=== PATIENT | female | born 1995 | race Caucasian/White ===

== ENCOUNTER 2023-02-23 17:59 | Emergency (ER) | payer SELFPAY | END 2023-02-23 20:45 | disposition home or self-care (01) | LOC: CSHERS 17:59 | DX: O99.891 Other specified diseases and conditions complicating pregnancy (principal); R10.32 Left lower quadrant pain; R11.0 Nausea; O99.331 Smoking (tobacco) complicating pregnancy, first trimester; F17.290 Nicotine dependence, other tobacco product, uncomplicated; Z3A.01 Less than 8 weeks gestation of pregnancy | CPT/HCPCS: 76856 ==

== ENCOUNTER 2023-03-19 18:06 | Inpatient (IN) | payer MEDICAID, OTHER ==
[2023-03-19] MEDS ORDERED: Ondansetron PF 4 MG/2 ML Vial IVP PRN (18:59)
[2023-03-19] MEDS ORDERED: hydrALAZINE 20 MG/ML VIAL SLOW IVP PRN (18:59)
[2023-03-19] MEDS ORDERED: Docusate 100 MG CAP PO PRN (18:59)
[2023-03-19] MEDS ORDERED: Acetaminophen 500 MG TAB PO PRN (18:59)
[2023-03-19] MEDS ORDERED: Promethazine HCl 25 MG/ML VIAL IM PRN (18:59)
[2023-03-19] MEDS: Lactated Ringer's 1,000 ML IV SCH (19:54)
[2023-03-19] MEDS ORDERED: Multivitamins, Adult 10 ML, Folic Acid 1 MG, Thiamine HCl 100 MG in Dextrose 5 %-0.45 %... IV SCH (20:00)
[2023-03-19] MEDS: Potassium Chloride 20 MEQ in Premix 1 BAG IVPB SCH ×2 (20:01→22:17)
[2023-03-19] MEDS: Metoclopramide HCl 10 MG/2 ML VIAL IVP SCH (21:24)
[2023-03-19 22:29] LABS: Hemoglobin A1c 5.1 % (4.0-6.0)
[2023-03-19] MEDS: Zolpidem Tartrate 5 MG TAB PO PRN (23:37)
[2023-03-20] MEDS ORDERED: Lactated Ringer's 1,000 ML IV SCH (02:00)
[2023-03-20 04:35] LABS: #Neutrophils 9.6 10x3/uL (1.5-8.4); %Basophils 0.1 % (0.0-2.0); %Eosinophils 0.3 % (0.0-6.0); %Lymphocytes 20.5 % (18.0-47.0); %Monocytes 7.4 % (0.0-10.0); Hemoglobin 11.4 g/dL (12.0-15.5); Mean Corpuscular HGB CONC 35.6 g/dL (32.0-36.0); Mean Corpuscular Hemoglobin 30.1 pg (27.0-33.0); Mean Corpuscular Volume 84.4 fl (81.6-98.3); Mean Platelet Volume 11.2 fl (7.4-10.4); Platelet Count 242 10x3/uL (150-450); RBC Distribution Width 11.9 % (11.5-14.5); Red Blood Cell (RBC) Count 3.79 10x6/uL (3.90-5.03); White Blood Cell (WBC) Count 13.6 10x3/uL (3.5-10.5)
[2023-03-20] MEDS: Metoclopramide HCl 10 MG/2 ML VIAL IVP SCH ×3 (05:18→21:56)
[2023-03-20] MEDS: Lactated Ringer's 1,000 ML IV SCH ×3 (05:21→17:12)
[2023-03-20 05:42] LABS: Bilirubin Neg (Negative); Blood, Urine Negative (Negative); Clarity Clear (Clear); Glucose, Urine (Dipstick) Normal (Negative); Ketone, Urine Negative (Negative); Leukocyte Negative (Negative); Nitrite Negative (Negative); Protein, Urine (Dipstick) 30 mg/dl (Neg-Trace)
[2023-03-20 05:48] LABS: ALT (SGPT) 105 U/L (8-55); AST (SGOT) 80 U/L (5-34); Albumin 3.5 g/dL (3.5-5.0); Alkaline Phosphatase 41 U/L (40-110); Anion Gap 13 mmol/L (10-20); BUN (Urea Nitrogen) 25 mg/dL (7.0-18.7); Calc. Creatinine Clearance 119 mL/min (70-130); Calcium 8.7 mg/dL (7.8-10.44); Carbon Dioxide 27 mmol/L (22-29); Chloride 95 mmol/L (98-107); Estimated GFR 119; Globulin 2.7 g/dL (2.4-3.5); Glucose 99 mg/dL (70-105); Potassium 2.7 mmol/L (3.5-5.1); Protein, Total 6.2 g/dL (6.0-8.3); Sodium 132 mmol/L (136-145)
[2023-03-20 05:54] LABS: Bacteria/HPF None Seen HPF (None Seen); CAUTI Indications for Culture Pregnancy; RBC/HPF None Seen HPF (0-3); Squamous Epithelial 0-3 HPF (0-3); WBC/HPF 0-3 HPF (0-3)
[2023-03-20] MEDS ORDERED: Lidocaine 2% Viscous Solution 10 ML, Aluminum & Magnesium Hydroxide 30 ML SSW SCH ×2 (06:00→18:00)
[2023-03-20] MEDS ORDERED: Potassium Chloride 20 MEQ TAB PO SCH (08:00)
[2023-03-20] MEDS: Potassium Chloride 20 MEQ in Premix 1 BAG IVPB SCH ×4 (10:35→21:56)
[2023-03-20 13:45] LABS: Thyroid Peroxidase IgG Ab 5.3 IU/mL (<25 Normal)
[2023-03-20 14:37] LABS: ALT (SGPT) 105 U/L (8-55); AST (SGOT) 69 U/L (5-34); Albumin 3.7 g/dL (3.5-5.0); Alkaline Phosphatase 45 U/L (40-110); Anion Gap 13 mmol/L (10-20); BUN (Urea Nitrogen) 21 mg/dL (7.0-18.7); Bilirubin, Total 1.1 mg/dL (0.2-1.2); Calc. Creatinine Clearance 119 mL/min (70-130); Calcium 9.1 mg/dL (7.8-10.44); Carbon Dioxide 28 mmol/L (22-29); Chloride 98 mmol/L (98-107); Estimated GFR 119; Globulin 2.8 g/dL (2.4-3.5); Glucose 89 mg/dL (70-105); Magnesium 2.4 mg/dL (1.6-2.6); Potassium 2.7 mmol/L (3.5-5.1); Protein, Total 6.5 g/dL (6.0-8.3); Sodium 136 mmol/L (136-145)
[2023-03-21] MEDS: Potassium Chloride 20 MEQ in Premix 1 BAG IVPB SCH ×3 (00:03→04:25)
[2023-03-21] MEDS: Zolpidem Tartrate 5 MG TAB PO PRN (00:14)
[2023-03-21] MEDS: Lactated Ringer's 1,000 ML IV SCH ×2 (04:25→10:41)
[2023-03-21] MEDS: Metoclopramide HCl 10 MG/2 ML VIAL IVP SCH (06:33)
[2023-03-21 07:51] VITALS: TEMP 98.5
[2023-03-21] MEDS ORDERED: Lidocaine 2% Viscous Solution 10 ML, Aluminum & Magnesium Hydroxide 30 ML SSW SCH (08:00)
[2023-03-21] MEDS ORDERED: Famotidine/PF 20 mg/2ml Vial SLOW IVP SCH (09:00)
[2023-03-21 11:00] LABS: ALT (SGPT) 95 U/L (8-55); AST (SGOT) 52 U/L (5-34); Albumin 3.5 g/dL (3.5-5.0); Alkaline Phosphatase 40 U/L (40-110); Anion Gap 10 mmol/L (10-20); BUN (Urea Nitrogen) 16 mg/dL (7.0-18.7); Bilirubin, Total 0.6 mg/dL (0.2-1.2); Calc. Creatinine Clearance 137 mL/min (70-130); Calcium 8.6 mg/dL (7.8-10.44); Carbon Dioxide 23 mmol/L (22-29); Chloride 106 mmol/L (98-107); Estimated GFR 125; Globulin 2.5 g/dL (2.4-3.5); Glucose 86 mg/dL (70-105); Potassium 3.9 mmol/L (3.5-5.1); Sodium 135 mmol/L (136-145)
[2023-03-21 12:03] VITALS: BP 117/65
== END 2023-03-21 14:58 | disposition home or self-care (01) | DRG 832 ==
LOC: CSHPP 18:06 → INTOOBSV 18:06 → OBSVTOIN 03-21 11:32
PROVIDERS: ADMIT Obstetrics & Gynecology; ATTEND Obstetrics & Gynecology
DX: O21.1 Hyperemesis gravidarum with metabolic disturbance (principal); O12.11 Gestational proteinuria, first trimester; O99.321 Drug use complicating pregnancy, first trimester; Z3A.09 9 weeks gestation of pregnancy
CPT/HCPCS: 36415; 76801; 80053; 81001; 83036; 83735; 84443; 84702; 85025; 86376; 86800; J2765; J3411; J3480; J7042; J7120; S0028